=== PATIENT | female | born 1995 | race Caucasian/White ===

== ENCOUNTER 2021-06-30 22:19 | Emergency (ER) | payer OTHER ==
[~2021-06-30 22:19] MED LIST: AMOXICILLIN500 MG PO; ATARAX25 MG PO
[2021-06-30 23:14] LABS: BASOPHIL 0.5 % (0-2); HCT 40.8 % (37.0-47.0); HGB 14.1 g/dl (12.5-16.0); LYMPHOCYTE 22.6 % (15-48); MCH 30.9 pg (25.0-31.0); MCHC 34.6 g/dL (32.0-36.0); MCV 89.5 fL (78.0-100.0); MONOCYTE 9.9 % (0-12); MPV 10.2 fL (6.0-9.5); NEUTROPHIL 63.7 % (41-80); NRBC 0; PLT 222 K/uL (150-400); RBC 4.56 M/uL (4.20-5.40); RDW 12.3 % (11.5-14.0); WBC 6.1 K/uL (4.0-10.5)
[2021-06-30 23:22] LABS: BILIRUBIN NEGATIVE (NEGATIVE); BLOOD NEGATIVE Ery/uL (NEGATIVE); CLARITY CLEAR (CLEAR); COLOR YELLOW (YELLOW); GLUCOSE (U) NORMAL (NORMAL); LEUKOCYTES NEGATIVE Leu/uL (NEGATIVE); NITRITE NEGATIVE (NEGATIVE); PROTEIN NEGATIVE (NEGATIVE); UROBILINOGEN 0.2 mg/dL (0.2-1.0)
[2021-06-30 23:26] LABS: ALBUMIN 3.4 g/dL (3.4-5.0); BILIRUBIN - TOTAL 0.6 mg/dL (0.2-1.0); BUN/CREAT RATIO (CALC) 14.3 RATIO; CREATININE 0.7 mg/dL (0.51-0.95); GLOBULIN (CALCULATION) 2.9 g/dL; POTASSIUM 4.1 mmol/L (3.5-5.1); TOTAL PROTEIN 6.3 g/dL (6.4-8.2)
[2021-07-01] MEDS ORDERED: MIRALAX17 GM PO (01:06)
[2021-07-02] MEDS ORDERED: METRONIDAZOLE500 MG PO (17:17)
[2021-07-02] MEDS ORDERED: NORCO 5-325 TA1 EACH PO (17:17)
[2021-07-02] MEDS ORDERED: CIPRO500 MG PO (17:17)
[2021-07-02] MEDS ORDERED: BENTYL10 MG PO (17:17)
== END 2021-07-01 01:21 | disposition home or self-care (01) ==
LOC: FER 22:19
PROVIDERS: Emergency Medicine
DX: K59.00 Constipation, unspecified (principal); R10.31 Right lower quadrant pain; J45.909 Unspecified asthma, uncomplicated; F17.200 Nicotine dependence, unspecified, uncomplicated
CPT/HCPCS: 36415; 80053; 81003; 83690; 85025; J1170; J2405; Q9967